=== PATIENT | male | born 1980 | race Caucasian/White ===

== ENCOUNTER 2016-03-18 15:00 | Emergency (ER) | payer OTHER ==
[~2016-03-18] VITALS: Ht 170.2 cm; Wt 59.2 kg
[~2016-03-18 15:00] MED LIST: 12 HOUR DECONG120 M1 PO; ADVIL,NUPRIN,M200 MG PO; BACTRIM,SEPT1 TABLET PO; FLAGYL500 MG PO; FLEXERIL10 MG PO; FLONASE16 G1 BOTH NARES; IBUPROFEN600 MG PO; METHADONE10 MG PO; NAPROSYN500 MG PO; NEURONTIN300 MG PO; NOHOMEMEDS; PERCOCET 5/31 TABLET PO
[2016-03-18 15:50] VITALS: BP 148/82
== END 2016-03-18 15:51 | disposition home or self-care (01) ==
LOC: EME → EDBD 15:00 → EME 15:00
DX: T50.991A Poisoning by other drugs, medicaments and biological substances, accidental (unintentional), initial encounter (principal); F17.200 Nicotine dependence, unspecified, uncomplicated
CPT/HCPCS: 93005; 99281; 99284